=== PATIENT | female | born 1950 | race Caucasian/White ===

== ENCOUNTER 2023-04-28 05:02 | Day surgery (SDC) | payer OTHER, MEDICARE ==
[2023-04-27 09:41] VITALS: BMI 23.4
[2023-04-28 10:44] VITALS: TEMP 97.8
[2023-04-28 11:27] VITALS: BP 114/67; PULSE 74; RESP 14
== END 2023-04-28 11:55 | disposition home or self-care (01) ==
LOC: JASU-ENDO 05:02
PROVIDERS: ATTEND Internal Medicine Gastroenterology
PROC: 0DBL8ZX Excision of Transverse Colon, Via Natural or Artificial Opening Endoscopic, Diagnostic (ICD-10-PCS; principal; 2023-04-28 11:00)
DX: Z12.11 Encounter for screening for malignant neoplasm of colon (principal); D12.3 Benign neoplasm of transverse colon; K57.30 Diverticulosis of large intestine without perforation or abscess without bleeding; I10 Essential (primary) hypertension